=== PATIENT | female | born 1945 | race Caucasian/White ===

== ENCOUNTER 2022-08-14 17:34 | Emergency (ER) | payer OTHER ==
[2022-08-14 17:42] VITALS: BP 160/85; PULSE 82; RESP 18; TEMP 97; BMI 25.0
[2022-08-14] MEDS ORDERED: BACITRACIN 15 GM TUBE TOPICAL OINTMENT TP ONE (19:32)
[2022-08-14] MEDS ORDERED: BACITRACIN 15 GM TUBE TOPICAL OINTMENT ONE (19:32)
[2022-08-14] MEDS ORDERED: DIPHTH,PERTUSS(ACELL),TET 0.5 ML DISP.SYRIN IM ONE ×2 (20:22→20:27)
[2022-08-14] MEDS ORDERED: AMOX TR/POT CLAV 500MG/125MG TABLETS (FP) PO ONE (20:30)
[2022-08-14] MEDS ORDERED: AMOX TR/POT CLAV 500MG/125MG TABLETS (FP) ONE (20:37)
== END 2022-08-14 22:40 | disposition home or self-care (01) ==
LOC: JERFT 17:34
PROC: 0HQLXZZ Repair Left Lower Leg Skin, External Approach (ICD-10-PCS; principal; 2022-08-14)
PROC: 3E0234Z Introduction of Serum, Toxoid and Vaccine into Muscle, Percutaneous Approach (ICD-10-PCS; 2022-08-14)
DX: S09.90XA Unspecified injury of head, initial encounter (principal); S81.812A Laceration without foreign body, left lower leg, initial encounter; W01.198A Fall on same level from slipping, tripping and stumbling with subsequent striking against other object, initial encounter; Y92.838 Other recreation area as the place of occurrence of the external cause
CPT/HCPCS: 12001; 70450-TC; 90471; 90715; 99284-25